=== PATIENT | female | born 1995 | race Caucasian/White ===

== ENCOUNTER → 2020-11-05 | Outpatient (CLI) | payer BC, OTHER ==
[2020-11-05 15:38] LABS: HCT 39.5 % (34.0-46.0); HGB 14.1 gm/dL (11.4-16.0); MCHC 35.6 g/dL (31.0-37.0); MCV 84.2 fL (80.0-100.0); Mean Platelet Volume 6.3; Platelet Count 265 k/uL (150-450); RDW 12.2 % (11.5-15.5); WBC 6.9 k/uL (3.8-10.6)
[2020-11-06 02:28] LABS: DHEA Sulfate 349.8 ug/dL (26.0-430.0)
[2020-11-06 02:32] LABS: Prolactin 12.4 ng/mL (2.8-29.2); T4, Free (Free Thyroxine) 0.9 ng/dL (0.80-1.80)
[2020-11-06 02:33] LABS: Estradiol 46.5 pg/mL; Follicle Stimulating Hormone 4.2 mIU/mL; Luteinizing Hormone 7.9 mIU/mL
== END | disposition home or self-care (01) ==
LOC: LABWHC1 14:31
PROVIDERS: ATTEND Obstetrics & Gynecology
DX: N97.0 Female infertility associated with anovulation (principal); N93.8 Other specified abnormal uterine and vaginal bleeding; Z13.29 Encounter for screening for other suspected endocrine disorder
CPT/HCPCS: 36415; 82627; 82670; 82947; 83001; 83002; 84144; 84146; 84403; 84439; 84443; 84479; 85027